=== PATIENT | male | born 1935 | race Caucasian/White ===

== ENCOUNTER 2016-09-19 17:59 | Emergency (ER) | payer OTHER, MEDICARE ==
[2016-09-19 18:58] VITALS: BMI 19.5
--- NOTE | 2016-09-19 19:40 | PDOC ---
History of Present Illness - General History Source: Patient Exam Limitations: No Limitations - History of Present Illness Initial Comments: 09/19/16 20:01 The patient is a 81 year old male with significant past medical history of hypertension, hyperlipidemia, copd, diverticulitis, basal cell carcinoma on [place] who presents to the ED for syncopal episode prior to arrival. Patient reports he was playing with his grandson when he had mechanical fall and landed on his right hip. No trauma to the head. States while on the ground he changed position, started to feel dizzy, and subsequently lost consciousness that lasted about 2 minutes. After regaining consciousness, he felt diaphoretic and contacted EMS immediately. Denies lightheadedness, chest pain, palpitations, SOB , jaw pain, shoulder pain, arm pain, nausea, or vomiting. At time of evaluation , patient states he has no complaints of pain. The patient denies fever, chills, cough, abdominal pain, and diarrhea. Allergies: NKDA Social History: No alcohol, tobacco, or drug use reported. Past Surgical History: Excision of basal cell carcinomas throughout the facial area, Colectomy (Partial), Laminectomy PCP: Dr. Mauricio Perez <Christina Basurto - Last Filed: 09/19/16 22:20> - General History Source: Patient <Morgan Mujica - Last Filed: 09/19/16 22:25> - General Chief Complaint: Syncope/Near Syncope Stated Complaint: FALL Time Seen by Provider: 09/19/16 19:20 Past History <Christina Basurto - Last Filed: 09/19/16 22:20> - Past Medical History Anemia: Yes Asthma: No Cancer: Yes (SKIN CANCER) Cardiac Disorders: No CVA: Yes (TIA SEVERAL YEARS AGO) COPD: Yes CHF: No Dementia: No Diabetes: No GI Disorders: Yes (ulcers) Disorders: No HTN: Yes Hypercholesterolemia: Yes Liver Disease: No Seizures: No Thyroid Disease: No - Surgical History Abdominal Surgery: No Appendectomy: No Cardiac Surgery: No Cholecystectomy: No Lung Surgery: No Neurologic Surgery: No Orthopedic Surgery: Yes (BACK SURGERY) - Immunization History Immunization Up to Date: Yes - Psycho/Social/Smoking Cessation Hx Anxiety: No Suicidal Ideation: No Smoking Status: Yes Smoking History: Never smoked Have you smoked in the past 12 months: No Number of Cigarettes Smoked Daily: 0 If you are a former smoker, when did you quit?: 15 YRS AGO Information on smoking cessation initiated: No 'Breaking Loose' booklet given: 08/11/12 Hx Alcohol Use: No Drug/Substance Use Hx: No Substance Use Type: None Hx Substance Use Treatment: No <Morgan Mujica - Last Filed: 09/19/16 22:25> - Past Medical History Allergies/Adverse Reactions: Allergies Allergy/AdvReac Type Severity Reaction Status Date / Time No Known Allergies Allergy Verified 09/19/16 18:58 Home Medications: Ambulatory Orders Aspirin [ASA -] 81 mg PO DAILY 02/09/14 Hydrochlorothiazide [Hctz -] 12.5 mg PO DAILY 02/09/14 Simvastatin [Zocor -] 20 mg PO HS 02/09/14 Valsartan [Diovan] 160 mg PO DAILY 02/09/14 Review of Systems - Review of Systems Able to Perform ROS?: Yes Comments:: 09/19/16 20:01 CONSTITUTIONAL: +diaphoresis Absent: fever, chills, generalized weakness, malaise, loss of appetite HEENT: Absent: rhinorrhea, nasal congestion, throat pain, throat swelling, difficulty swallowing, mouth swelling, ear pain, eye pain, visual Changes CARDIOVASCULAR: +syncope Absent: chest pain, palpitations, irregular heart rate, lightheadedness , peripheral edema RESPIRATORY: Absent: cough, shortness of breath, dyspnea with exertion, orthopnea, wheezing, stridor, hemoptysis GASTROINTESTINAL: Absent: abdominal pain, abdominal distension, nausea, vomiting, diarrhea, constipation, melena, hematochezia GENITOURINARY: Absent: dysuria, frequency, urgency, hesitancy, hematuria, flank pain, genital pain MUSCULOSKELETAL: Absent: myalgia, arthralgia, joint swelling SKIN: Absent: rash, itching, pallor NEUROLOGIC: +dizzy Absent: headache, focal weakness or paresthesias, unsteady gait, seizure , mental status changes, bladder or bowel incontinence <Christina Basurto - Last Filed: 09/19/16 22:20> *Physical Exam - Vital Signs Last Vital Signs Temp Pulse Resp BP Pulse Ox 97.4 F L 62 18 133/67 97 09/19/16 17:59 09/19/16 17:59 09/19/16 17:59 09/19/16 17:59 09/19/16 17:59 - Physical Exam Comments: 09/19/16 20:01 GENERAL: Well developed, well nourished. Awake and alert. No acute distress. HEENT: Normocephalic, atraumatic. No raccoon or gonzalez sign. PERRLA, EOMI. No conjunctival pallor. Sclera are non-icteric. Moist mucous membranes. Oropharynx is clear. No hemotympanum. NECK: Supple. Full ROM. No JVD. Carotid pulses 2+ and symmetric, without bruits. No thyromegaly. No lymphadenopathy. CARDIOVASCULAR: Regular rate and rhythm. No murmurs, rubs, or gallops. Distal pulses are 2+ and symmetric. PULMONARY: No evidence of respiratory distress. Lungs clear to auscultation bilaterally. No wheezing, rales or rhonchi. ABDOMINAL: Soft. Non-tender. Non-distended. No rebound or guarding. No organomegaly. Normoactive bowel sounds. MUSCULOSKELETAL Normal range of motion at all joints. No bony deformities or tenderness. Negative pelvic rock. No CVA tenderness. EXTREMITIES: No cyanosis. No clubbing. No edema. No calf tenderness. SKIN: Warm and dry. Normal capillary refill. No rashes. No jaundice. NEUROLOGICAL: Alert, awake, appropriate. Cranial nerves 2-12 intact. Moving all extremities. No gross neurological deficits. <Christina Basurto - Last Filed: 09/19/16 22:20> - Vital Signs Last Vital Signs Temp Pulse Resp BP Pulse Ox 97.4 F L 62 18 133/67 97 09/19/16 17:59 09/19/16 17:59 09/19/16 17:59 09/19/16 17:59 09/19/16 17:59 <Morgan Mujica - Last Filed: 09/19/16 22:25> ED Treatment Course - LABORATORY CBC & Chemistry Diagram: 09/19/16 20:40 09/19/16 20:40 <Christina Basurto - Last Filed: 09/19/16 22:20> - LABORATORY CBC & Chemistry Diagram: 09/19/16 20:40 09/19/16 20:40 <Morgan Mujica - Last Filed: 09/19/16 22:25> Medical Decision Making - Medical Decision Making 09/19/16 22:[address] Eric Paniagua who is covering for Dr. Mauricio Perez (via answering service) Awaiting call back 09/19/16 22:20 Patient's case discussed with Dr. Paniagua. <Christina Basurto - Last Filed: 09/19/16 22:20> - Medical Decision Making 09/19/16 22:23 Dr. Mujica: The scribe's documentation has been prepared under my direction and personally reviewed by me in its entirery. I confirm that the note above accurately reflects all work, treatment, procedures, and medical decision making performed by me. Pt has felt well since he presented. Hemodynamically stable. Work up including head ct scan is all negative. Pt may be discharged to follow up with Dr. Banks <Morgan Mujica - Last Filed: 09/19/16 22:25> *DC/Admit/Observation/Transfer - Attestations Scribe Attestion: 09/19/16 20:02 Documentation prepared by Christina Basurto, acting as medical pathologist for Morgan Mujica MD/DO. <Christina Basurto - Last Filed: 09/19/16 22:20> - Discharge Dispostion Admit: No <Morgan Mujica - Last Filed: 09/19/16 22:25> Diagnosis at time of Disposition: Syncope Qualifiers: Encounter type: initial encounter - Discharge Dispostion Disposition: HOME Condition at time of disposition: Stable - Referrals Referrals: Mauricio Perez MD [Primary Care Provider] - - Patient Instructions Printed Discharge Instructions: DI for Syncope in Adults (Fainting) Additional Instructions: continue with all your current medications. Follow up with Dr. Perez for re- evaluation. Return if any problems.
[2016-09-19 20:47] LABS: BASOPHIL 0.4 % (0-2.0); EOSINOPHIL 0.9 % (0-4.5); MCH 30.3 pg (25.7-33.7); MEAN CELL VOLUME 91.8 fl (80-96); MEAN PLT VOLUME 8.5 fl (7.5-11.1); NEUTROPHILS 85.6 % (42.8-82.8); PLATELET COUNT 146 K/MM3 (134-434); RDW 14.7 % (11.9-15.9); WHITE BLOOD COUNT 9.9 K/mm3 (4.0-10.0)
[2016-09-19 21:01] LABS: INR 1.17 (0.82-1.09); PROTHROMBIN TIME (PATIENT) 12.9 SEC (9.98-11.88)
[2016-09-19 21:22] LABS: ALBUMIN 3.6 g/dl (3.4-5.0); ANION GAP 10 (8-16); BILIRUBIN,TOTAL 1.4 mg/dL (0.2-1.0); CALCIUM 8.5 mg/dL (8.5-10.1); CO2 24 mmol/L (21-32); CREATININE 0.9 mg/dL (0.7-1.3); GLUCOSE,RANDOM 100 mg/dL (74-106); SGOT/AST 42 U/L (15-37); SGPT/ALT 31 U/L (12-78); TOT PROT 6.1 g/dl (6.4-8.2)
[2016-09-19 21:25] LABS: ALK PHOS 76 U/L (45-117); TROPONIN I < 0.02 ng/ml (0.00-0.05)
[2016-09-19 23:01] VITALS: BP 111/65; PULSE 68; TEMP 97.6
--- NOTE | 2016-09-20 12:25 | EKG ---
Test Reason : Blood Pressure : / mmHG Vent. Rate : 062 BPM Atrial Rate : 062 BPM P-R Int : 256 ms QRS Dur : 076 ms QT Int : 394 ms P-R-T Axes : 013 013 029 degrees QTc Int : 399 ms SINUS RHYTHM WITH 1ST DEGREE A-V BLOCK OTHERWISE NORMAL ECG WHEN COMPARED WITH ECG OF 09-FEB-2014 19:52, PREMATURE ATRIAL COMPLEXES ARE NO LONGER PRESENT AL INTERVAL HAS INCREASED VENT. RATE HAS DECREASED BY 65 BPM Confirmed by PETROS MTZ MD ([id number]) on 09/20/2016 12:24:55 PM Referred By: Confirmed By:PETROS MTZ MD
== END 2016-09-19 22:59 | disposition home or self-care (01) ==
LOC: JER 17:59
DX: R55 Syncope and collapse (principal); W19.XXXA Unspecified fall, initial encounter; Y92.018 Other place in single-family (private) house as the place of occurrence of the external cause; I10 Essential (primary) hypertension; E78.5 Hyperlipidemia, unspecified; J44.9 Chronic obstructive pulmonary disease, unspecified; K57.20 Diverticulitis of large intestine with perforation and abscess without bleeding; Z85.828 Personal history of other malignant neoplasm of skin
CPT/HCPCS: 36415; 70450-TC; 71010-TC; 80053; 82550; 82553; 84484; 85025; 85610; 93005; 93010; 99283-25